=== PATIENT | female | born 1980 | race Caucasian/White ===

== ENCOUNTER 2021-02-17 18:47 | Emergency (ER) | payer OTHER, MEDICAID, SELFPAY ==
[2021-02-17 19:56] VITALS: BP 0/0; PULSE 0; RESP 0; TEMP -17.7; TEMP 0
== END 2021-02-17 19:57 | disposition left against medical advice (07) ==
LOC: UTC 18:56
PROVIDERS: Emergency Provider Nurse Practitioner Family
DX: Z53.21 Procedure and treatment not carried out due to patient leaving prior to being seen by health care provider (principal)